=== PATIENT | female | born 1975 ===

== ENCOUNTER 2017-08-13 11:47 | Emergency (ER) | payer BC ==
--- NOTE | 2017-08-13 12:34 | ED Physician Documentation ---
PD HPI MHE - Stated complaint Stated Complaint: ANXIETY - Chief complaint Chief Complaint: MHE - History obtained from History obtained from: Patient, Family () - History of Present Illness Primary symptom: Other (A couple of years ago she was involved in a stressful incident at work. She developed a lot of anxiety then which improved well on citalopram and alprazolam. A couple of months ago she stopped the citalopram and transitioned over more recently to buspirone, despite decreasing and stopping the buspirone today now she has delusions and flight of ideas and was sent from her primary care physician's office for potential tele- psychiatry consultation.) Review of Systems Ten Systems: 10 systems reviewed and negative Constitutional: denies: Fever, Chills Eyes: reports: Reviewed and negative Ears: reports: Reviewed and negative Nose: denies: Rhinorrhea / runny nose, Congestion Throat: denies: Sore throat Cardiac: denies: Chest pain / pressure, Palpitations Respiratory: denies: Dyspnea, Cough PD PAST MEDICAL HISTORY - Past Medical History Respiratory: Asthma Other Past Medical History: seasonal allergies - Past Surgical History Past Surgical History: Yes - Present Medications Home Medications: Ambulatory Orders Medication Instructions Recorded Confirmed Azelastine HCl 6 ml PO DAILY 08/13/17 08/13/17 Citalopram [CeleXA] 10 mg PO DAILY 08/13/17 08/13/17 Epinastine HCl 5 ml EACHEYE DAILY 08/13/17 08/13/17 Fluticasone 44 Mcg [Flovent] 1 spray PO DAILY 08/13/17 08/13/17 Fluticasone [Flonase] 1 spray PO DAILY 08/13/17 08/13/17 Levocetirizine Dihydrochloride 5 mg PO DAILY 08/13/17 08/13/17 Montelukast [Singulair] 10 mg PO DAILY 08/13/17 08/13/17 busPIRone [Buspar] 5 mg PO DAILY 08/13/17 08/13/17 risperiDONE [Risperdal] 1 mg PO BID #20 tablet 08/13/17 - Allergies Allergies/Adverse Reactions: Allergies Allergy/AdvReac Type Severity Reaction Status Date / Time bacitracin Allergy Hives Verified 08/13/17 11:59 neomycin Allergy Rash Verified 08/13/17 11:59 [From Neosporin ([id number])] polymyxin B Allergy Rash Verified 08/13/17 11:59 [From Neosporin ([id number])] - Social History Does the pt smoke?: No Smoking Status: Never smoker Does the pt drink ETOH?: Yes Does the pt have substance abuse?: No - Family History Family history: reports: Non contributory PD ED PE NORMAL - Vitals Vital signs reviewed: Yes - General General: Alert and oriented X 3, No acute distress - HEENT HEENT: PERRL, EOMI, Ears normal - Derm Derm: Normal color, Warm and dry, No rash - Extremities Extremities: No deformity, No tenderness to palpate, No edema, No calf tenderness / cord - Neuro Neuro: Alert and oriented X 3 Eye Opening: Spontaneous Motor: Obeys Commands Verbal: Oriented GCS Score: 15 - Psych Psych: Normal mood, Normal affect Results - Vitals Vitals: Vital Signs - 24 hr 08/13/17 08/13/17 11:55 14:56 Temperature 36.2 C L Heart Rate 81 81 Respiratory 18 24 Rate Blood Pressure 136/88 H 125/75 O2 Saturation 100 100 Oxygen O2 Source Room air - Labs Labs: Laboratory Tests 08/13/17 08/13/17 12:20 12:20 Urine Color DARK YELLOW Urine Clarity CLEAR Urine pH 6.0 Ur Specific Henderson 1.025 Urine Protein NEGATIVE Urine Glucose (UA) NEGATIVE Urine Ketones TRACE Urine Occult Blood MODERATE H Urine Nitrite NEGATIVE Urine Bilirubin NEGATIVE Urine Urobilinogen 0.2 (NORMAL) Ur Leukocyte Esterase NEGATIVE Urine RBC 0-5 Urine WBC 0-3 Ur Squamous Epith Cells RARE Squamous Urine Bacteria Few Ur Microscopic Review INDICATED Urine Culture Comments NOT INDICATED Urine HCG, Qual NEGATIVE Urine Opiates Screen NEGATIVE Ur Oxycodone Screen NEGATIVE Urine Methadone Screen NEGATIVE Ur Propoxyphene Screen NEGATIVE Ur Barbiturates Screen NEGATIVE Ur Tricyclics Screen NEGATIVE Ur Phencyclidine Scrn NEGATIVE Ur Amphetamine Screen NEGATIVE U Methamphetamines Scrn NEGATIVE U Benzodiazepines Scrn POSITIVE H Urine Cocaine Screen NEGATIVE U Cannabinoids Screen NEGATIVE PD MEDICAL DECISION MAKING - ED course ED course: 41-year-old woman with some delusional and manic type symptoms complicated by new medications. Tele-psychiatry consult was done and their recommendation was to stop buspirone, continue Xanax as needed, decrease Celexa from 40 mg to 20 mg once a day with the eventual hope of discontinuing it completely, Starting Risperdal, 1 mg by mouth twice a day and stopping Ambien. This plan was also relayed to her primary care nurse practitioner, Yamileth Wright. Departure - Departure Disposition: 01 Home, Self Care Clinical Impression: Psychiatric symptoms Condition: Good Record reviewed to determine appropriate education?: Yes Prescriptions: risperiDONE [Risperdal] 1 mg PO BID #20 tablet Comments: Stop the buspar/buspirone. Instead you will take risperdone 1mg radha daily. You can continue alprazolam as needed. Decrease your celexa from 40mg daily to 20mg daily. Do not take ambien (if something is needed for sleep you can benadryl). Your blood pressure was elevated today on check into the emergency department. This does not mean that you have hypertension, it is a common phenomenon to come to the emergency department and have elevated blood pressure. I recommend that you see your primary care physician within the week to have it rechecked when you are feeling better. Discharge Date/Time: 08/13/17 15:13
[2017-08-13 12:50] LABS: MUDS CUTOFF CONCENTRATIONS CUTOFF CONC BELOW:
[2017-08-13 13:02] LABS: BILIRUBIN,URINE NEGATIVE (NEGATIVE); GLUCOSE, URINE (UA) NEGATIVE (NEGATIVE); KETONES,URINE (UA) TRACE mg/dL (NEGATIVE); LEUKOCYTE ESTERASE, URINE NEGATIVE (NEGATIVE); NITRITE,URINE NEGATIVE (NEGATIVE); OCCULT BLOOD,URINE MODERATE (NEGATIVE); PROTEIN,URINE NEGATIVE (NEGATIVE); UROBILINOGEN,URINE 0.2 (NORMAL) E.U./dL (NORMAL)
[2017-08-13 13:04] LABS: CLARITY,URINE CLEAR (CLEAR)
[2017-08-13 13:05] LABS: HCG UR QUAL NEGATIVE
[2017-08-13 13:12] LABS: AMPHETAMINE SCREEN,URINE NEGATIVE (NEGATIVE); BENZODIAZEPINES SCREEN, URINE POSITIVE (NEGATIVE); COCAINE SCREEN URINE NEGATIVE (NEGATIVE); METHADONE SCREEN, URINE NEGATIVE (NEGATIVE); METHAMPHETAMINES SCREEN, URINE NEGATIVE (NEGATIVE); OPIATE SCREEN, URINE NEGATIVE (NEGATIVE); OXYCODONE SCREEN, URINE NEGATIVE (NEGATIVE); PROPOXYPHENE SCREEN, URINE NEGATIVE (NEGATIVE); TRICYCLIC ANTIDEPRESSANT,URINE NEGATIVE (NEGATIVE)
[2017-08-13 13:16] LABS: BACTERIA,URINE Few /HPF (None Seen); RBC,URINE 0-5 /HPF (0-5); SQUAMOUS EPITHELIAL CELL,UR RARE Squamous (<= Few)
[2017-08-13 14:57] VITALS: BP 125/75
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
== END 2017-08-13 15:13 | disposition home or self-care (01) ==
LOC: ED 11:47
DX: F31.2 Bipolar disorder, current episode manic severe with psychotic features (principal); F43.0 Acute stress reaction; F41.9 Anxiety disorder, unspecified; R03.0 Elevated blood-pressure reading, without diagnosis of hypertension; J45.909 Unspecified asthma, uncomplicated
CPT/HCPCS: 80306; 81001; 81025; 99283; G0427; Q3014; 81003; 87086

== ENCOUNTER 2023-09-16 11:26 | Outpatient (CLI) | payer BC ==
--- NOTE | 2023-09-16 15:42 | XRAY Report ---
PROCEDURE: Chest 2 View X-Ray INDICATIONS: CHEST PAIN/DYSPNEA TECHNIQUE: 2 views of the chest were acquired. COMPARISON: None. FINDINGS: Surgical changes and devices: There are bilateral nipple piercings noted Lungs and pleura: No pleural effusions or pneumothorax. Lungs are clear. Mediastinum: Mediastinal contours appear normal. Heart size is normal. Bones and chest wall: No suspicious bony lesions. Overlying soft tissues appear unremarkable. IMPRESSION: No acute cardiopulmonary process. Reviewed by: Rima Oconnor MD on 09/16/2023 3:41 PM PST Approved by: Rima Oconnor MD on 09/16/2023 3:41 PM PST Station ID: [id number]
== END 2023-09-16 11:27 | disposition home or self-care (01) ==
LOC: DI 11:26
PROVIDERS: ATTEND Internal Medicine
DX: R07.9 Chest pain, unspecified (principal); R06.00 Dyspnea, unspecified